=== PATIENT | female | born 2000 | race Caucasian/White ===

== ENCOUNTER 2023-10-22 23:01 | Emergency (ER) | payer BC ==
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
[2023-10-23] MEDS: LIDOCAINE 1% INJ 10MG/ML (20 ML MDV) SQ ONE (01:23)
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
[2023-10-23 02:43] VITALS: BP 129/70; PULSE 97; RESP 18; TEMP 97.8
== END 2023-10-23 02:45 | disposition home or self-care (01) ==
LOC: EC 23:01
DX: S01.01XA Laceration without foreign body of scalp, initial encounter (principal); V89.2XXA Person injured in unspecified motor-vehicle accident, traffic, initial encounter; Y92.410 Unspecified street and highway as the place of occurrence of the external cause
CPT/HCPCS: 72070; 71046; 72125; 70450; 99284; 12002; J2001